=== PATIENT | male | born 1975 | race Two or more races ===

== ENCOUNTER 2021-02-01 21:33 | Emergency (ER) | payer SELFPAY ==
[~2021-02-01] VITALS: Ht 175.3 cm; Wt 91.0 kg
[2021-02-01] MEDS ORDERED: PROMETHAZINE HCL 25MG TABLET PO PRN (22:30)
[2021-02-01] MEDS ORDERED: SODIUM CHLORIDE 0.9% 1,000 ML IV ONE (22:30)
[2021-02-01] MEDS ORDERED: HALOPERIDOL LACTATE 5MG/ML VIAL IM ONE (22:30)
[2021-02-01] MEDS ORDERED: METOCLOPRAMIDE HCL 10MG/2ML VIAL IV ONE (23:00)
[2021-02-01 23:22] LABS: HEMATOCRIT 42.4 % (42.0-52.0); HEMOGLOBIN 14.1 g/dL (14.0-18.0); MEAN CORPUSCULAR HEMOGLOBIN 28.9 pg (28.0-32.0); MEAN CORPUSCULAR VOLUME 87.1 fL (80.0-94.0); PLATELET 234 x1000/uL (130-400); RED BLOOD CELL COUNT 4.87 mill/uL (4.7-6.1); RED CELL DISTRIBUTION WIDTH 14.3 % (11.6-14.6)
[2021-02-01 23:31] LABS: CHLORIDE 105 mEq/L (98-107)
[2021-02-02 00:09] VITALS: BP 116/62
== END 2021-02-02 00:41 | disposition home or self-care (01) ==
LOC: ER 21:33
DX: F12.188 Cannabis abuse with other cannabis-induced disorder (principal); I10 Essential (primary) hypertension; G40.909 Epilepsy, unspecified, not intractable, without status epilepticus; Z85.028 Personal history of other malignant neoplasm of stomach; Z88.0 Allergy status to penicillin
CPT/HCPCS: 36415; 80053; 83690; 85027; 93005; 96361; 96372; 96374; 99284; J1630; J2765; J7030